=== PATIENT | male | born 1980 | race Caucasian/White ===

== ENCOUNTER 2022-02-07 22:10 | Emergency (ER) | payer SELFPAY ==
[2022-02-07 23:16] LABS: CLARITY,URINE SLIGHTLY CLOUDY (Clear); COLOR,URINE YELLOW (Yellow); GLUCOSE, URINE NEGATIVE (Neg); KETONES,URINE 15 mg/dl (Neg); LEUKOCYTE ESTERASE ,URINE NEGATIVE (Neg); NITRITES, URINE NEGATIVE (Neg); OCCULT BLOOD,URINE NEGATIVE (Neg); PH,URINE 5.5 (4.8-8.0); PROTEIN,URINE 30 mg/dl (Neg); UROBILINOGEN,URINE 0.2 E.U/dL (0.2-1.0)
[2022-02-07 23:19] LABS: UA COLLECTION TYPE CLN CATCH MIDSTREAM
[2022-02-07 23:25] LABS: RBC,URINE 0-2 /HPF (0-2)
[2022-02-07 23:26] LABS: BACTERIA,URINE 1+ /HPF (Neg); CAL OXALATE CRYSTALS 2+ /HPF (NEGATIVE); SQUAMOUS EPITHELIAL CELL,UR FEW /LPF (FEW); TRANSITIONAL EPI CELLS,URINE FEW /HPF
[2022-02-07 23:45] LABS: URINE AMPHETAMINE SCREEN POSITIVE (Neg); URINE BARBITUATE SCREEN NEGATIVE (Neg); URINE BENZODIAZEPINES SCREEN NEGATIVE (Neg); URINE CANNABINOID SCREEN POSITIVE (Neg); URINE COCAINE SCREEN NEGATIVE (Neg); URINE METHADONE SCREEN NEGATIVE (Neg); URINE OPIATE SCREEN NEGATIVE (Neg); URINE PHENCYCLIDINE SCREEN NEGATIVE (Neg)
== END 2022-02-07 22:59 ==
LOC: ER 22:11
DX: T14.8XXA Other injury of unspecified body region, initial encounter; M25.511 Pain in right shoulder; F23 Brief psychotic disorder; F17.210 Nicotine dependence, cigarettes, uncomplicated; X58.XXXA Exposure to other specified factors, initial encounter; Y93.89 Activity, other specified; Y92.89 Other specified places as the place of occurrence of the external cause; Y99.8 Other external cause status
CPT/HCPCS: 73030; 80305; 81001; 99284